=== PATIENT | male | born 1975 | race Caucasian/White ===

== ENCOUNTER 2024-09-20 15:06 | Emergency (ER) | payer BC ==
[~2024-09-20] VITALS: Ht 177.8 cm; Wt 80.0 kg
[2024-09-20 16:21] VITALS: BP 130/87
== END 2024-09-20 16:20 | disposition home or self-care (01) ==
LOC: ED 15:06
DX: M79.605 Pain in left leg (principal)
CPT/HCPCS: 93971; 99283-25